=== PATIENT | female | born 1940 | race Caucasian/White ===

== ENCOUNTER → 2020-01-10 | Outpatient (CLI) | payer MEDICARE, OTHER ==
--- NOTE | 2020-01-13 10:21 | CT ---
EXAM DESCRIPTION: CT ABDOMEN WITH CONTRAST CLINICAL HISTORY: abd pain COMPARISON: None Available. TECHNIQUE: CT of the abdomen is performed during IV bolus administration of routine adult dose of nonionic iodinated IV contrast. FINDINGS: The lung bases are clear of infiltrate. Liver is normal in size and parenchymal appearance. Small cyst in the left lobe of the liver incidentally noted. No calcified stones in the gallbladder. Common duct is ectatic measuring up to 1.3 cm. 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 Spleen, pancreas, and kidneys are unremarkable. There is no lymphadenopathy, inflammation, or free fluid observed. Degenerative changes in lower lumbar spine. IMPRESSION: No acute upper abdominal process. This exam was performed according to our departmental dose-optimization program, which includes automated exposure control, adjustment of the mA and/or kV according to patient size and/or use of iterative reconstruction technique. Electronically signed by: Lee Galeas MD 01/13/2020 10:19 AM CDT
== END ==
LOC: CT 14:53
PROVIDERS: ATTEND Nurse Practitioner
DX: R10.9 Unspecified abdominal pain (principal); K80.20 Calculus of gallbladder without cholecystitis without obstruction